=== PATIENT | male | born 1980 | race Caucasian/White ===

== ENCOUNTER 2017-07-03 14:45 | Inpatient (IN) | payer SELFPAY ==
[~2017-07-03] VITALS: Ht 182.9 cm; Wt 90.7 kg
[2017-07-03] VITALS (10 sets, daily range): BP systolic 107–154; BP diastolic 66–86
--- NOTE | 2017-07-03 14:57 | Emergency Room Report ---
History of Present Illness General Chief Complaint: Overdose Source: EMS Present Illness HPI Patient brought in by paramedics for altered mental status patient was found laying on the ground Patient was given intranasal Narcan in route no obvious response There was no other obvious reports of drugs on the scene Patient is unresponsive and history of present illness is significantly limited No obvious vomiting at the scene No obvious trauma to same Allergies: Coded Allergies: UNABLE TO ASSESS (Unverified , 07/03/17) UNRESPONSIVE, NO FAMILY Patient History Limited by: medical condition Pertinent Family History: unable to obtain Reviewed Nursing Documentation: PMH: Agreed, PSxH: Agreed Nursing Documentation-PMH Past Medical History Deferred: No Family Available Past Medical History: Deferred Review of Systems All Other Systems: limited - Other than the ones mentioned in the history of present illness all others are reviewed however they do stay limited due to the patient's mental status Physical Exam Vital Signs Date Time Temp Pulse Resp B/P (MAP) Pulse Ox O2 Delivery O2 Flow Rate FiO2 07/03/17 14:29 97.9 78 18 133/64 95 Room Air Sp02 EP Interpretation: reviewed, normal General Appearance: mild distress - Patient has labored respirations Head: normocephalic, atraumatic Eyes: bilateral eye other - Pinpoint bilaterally ENT: normal pharynx, TMs + canals normal, uvula midline Neck: supple, no meningismus Respiratory: lungs clear, normal breath sounds, no rhonchi, other - Heavy respirations Cardiovascular #1: normal peripheral pulses, regular rate, rhythm, no edema, no gallop, no JVD, no murmur Gastrointestinal: normal bowel sounds, soft, no mass, no organomegaly, non- distended, no hernia, no pulsatile mass, no rebound Musculoskeletal: other - Patient significantly altered is not following commands nonverbal Neurologic: other - Significantly decreased GCS patient has minimal response to physical stimuli, Skin: warm/dry, palpation normal Lymphatic: normal inspection, no adenopathy Medical Decision Making Diagnostic Impression: Primary Impression: Drug overdose Additional Impressions: Aspiration into airway Hypoxia ER Course Given the patient's history and presentation multiple differentials considered the patient has been found altered there was essentially no response to Narcan there for further differentials of intracranial pathology entertained as well Patient blood work and urine sample reveals multiple drug ingestions Patient slowly becoming more arousable and responsive Patient does have evidence of room air hypoxia Has evidence of coughing and what sounds to be likely aspiration Patient initiated on broad spectrum antibiotic And given the hypoxia requires further inpatient care Labs Test 07/03/17 15:00 White Blood Count 8.7 K/UL (4.8-10.8) Red Blood Count 5.03 M/UL (4.70-6.10) Hemoglobin 15.0 G/DL (14.2-18.0) Hematocrit 45.2 % (42.0-52.0) Mean Corpuscular Volume 90 FL (80-99) Mean Corpuscular Hemoglobin 29.8 PG (27.0-31.0) Mean Corpuscular Hemoglobin Concent 33.2 G/DL (32.0-36.0) Red Cell Distribution Width 12.5 % (11.6-14.8) Platelet Count 239 K/UL (150-450) Mean Platelet Volume 6.6 FL (6.5-10.1) Neutrophils (%) (Auto) % (45.0-75.0) Lymphocytes (%) (Auto) % (20.0-45.0) Monocytes (%) (Auto) % (1.0-10.0) Eosinophils (%) (Auto) % (0.0-3.0) Basophils (%) (Auto) % (0.0-2.0) Differential Total Cells Counted 100 Neutrophils % (Manual) 86 % (45-75) Lymphocytes % (Manual) 7 % (20-45) Monocytes % (Manual) 6 % (1-10) Eosinophils % (Manual) 0 % (0-3) Basophils % (Manual) 0 % (0-2) Band Neutrophils 1 % (0-8) Platelet Estimate Adequate Platelet Morphology Normal Red Blood Cell Morphology Normal Sodium Level 143 MMOL/L (136-145) Potassium Level 4.2 MMOL/L (3.5-5.1) Chloride Level 104 MMOL/L (98-107) Carbon Dioxide Level 20 MMOL/L (21-32) Anion Gap 19 mmol/L (5-15) Blood Urea Nitrogen 20 mg/dL (7-18) Creatinine 1.4 MG/DL (0.55-1.30) Estimat Glomerular Filtration Rate 57.3 mL/min (>60) Glucose Level 92 MG/DL (74-106) Calcium Level 10.1 MG/DL (8.5-10.1) Total Bilirubin 0.7 MG/DL (0.2-1.0) Aspartate Amino Transf (AST/SGOT) 30 U/L (15-37) Alanine Aminotransferase (ALT/SGPT) 56 U/L (12-78) Alkaline Phosphatase 114 U/L (46-116) Total Protein 8.8 G/DL (6.4-8.2) Albumin 4.6 G/DL (3.4-5.0) Globulin 4.2 g/dL Albumin/Globulin Ratio 1.1 (1.0-2.7) Salicylates Level 1.0 ug/mL (2.8-20) Urine Opiates Screen Negative (NEGATIVE) Acetaminophen Level < 2 MCG/ML (10-30) Urine Barbiturates Screen Negative (NEGATIVE) Phencyclidine (PCP) Screen Negative (NEGATIVE) Urine Amphetamines Screen Positive (NEGATIVE) Urine Benzodiazepines Screen Positive (NEGATIVE) Urine Cocaine Screen Negative (NEGATIVE) Urine Marijuana (THC) Screen Positive (NEGATIVE) Serum Alcohol < 3 mg/dL Rhythm Strip Diag. Results EP Interpretation: yes Rate: 88 Rhythm: NSR, no PVC's, no ectopy Chest X-Ray Diagnostic Results Chest X-Ray Diagnostic Results : Chest X-Ray Ordered: Yes # of Views/Limited/Complete: 1 View Indication: Chest Pain EP Interpretation: Yes Interpretation: no consolidation, no effusion, no pneumothorax, no acute cardiopulmonary disease Impression: No acute disease Electronically Signed by: Hesham Fortune DO CT/MRI/US Diagnostic Results CT/MRI/US Diagnostic Results : Impression CT head no acute disease Last Vital Signs Date Time Temp Pulse Resp B/P (MAP) Pulse Ox O2 Delivery O2 Flow Rate FiO2 07/03/17 14:29 97.9 78 18 133/64 95 Room Air Status: improved Disposition: ADMITTED INPATIENT Condition: Serious HESHAM FORTUNE D.O. Jul 03, 2017 14:57
--- NOTE | 2017-07-03 15:22 | Diagnostic Imaging Report ---
Indication: Altered mental status Technique: Continuous helical CT scanning of the head was performed without intravenous contrast material. Axial and coronal 5 mm sections were generated. Radiation dose was minimized using automated exposure control Dose: Total Dose Length Product - DLP 1418.[address] Dose Index - CTDIvol(s) 70.38 mGy. Comparison: Findings: The ventricular system is normal in size and configuration. There is no shift of midline structures. No abnormal extra-axial fluid collections are noted. There is no evidence of intracerebral bleeding. No other abnormal high or low density areas are noted within the brain. There is minimal right ethmoid sinus disease. The mastoids are clear. The orbits are unremarkable Impression: Normal CT scan of the head without contrast material. Minimal sinus disease incidentally noted The CT scanner at [facility] is accredited by the [employer] and the scans are performed using protocols designed to limit radiation exposure to as low as reasonably achievable to attain images of sufficient resolution adequate for diagnostic evaluation.
[2017-07-03 15:29] LABS: HEMATOCRIT 45.2 % (42.0-52.0); MEAN CORPUSCULAR VOLUME 90 FL (80-99); PLATELET COUNT 239 K/UL (150-450); RED BLOOD COUNT 5.03 M/UL (4.70-6.10); RED CELL DISTRIBUTION WIDTH 12.5 % (11.6-14.8); WHITE BLOOD COUNT 8.7 K/UL (4.8-10.8)
[2017-07-03] MEDS ORDERED: Naloxone 1mg/ml 2ml IVP ONE (15:45)
[2017-07-03 15:51] LABS: ANION GAP 19 mmol/L (5-15); BLOOD UREA NITROGEN 20 mg/dL (7-18); CALCIUM 10.1 MG/DL (8.5-10.1); CARBON DIOXIDE 20 MMOL/L (21-32); CHLORIDE 104 MMOL/L (98-107); CREATININE 1.4 MG/DL (0.55-1.30); POTASSIUM 4.2 MMOL/L (3.5-5.1); SODIUM 143 MMOL/L (136-145)
[2017-07-03 15:57] LABS: ALANINE AMINOTRANSFERASE 56 U/L (12-78); ALBUMIN 4.6 G/DL (3.4-5.0); ALBUMIN/GLOBULIN RATIO 1.1 (1.0-2.7); ALKALINE PHOSPHATASE 114 U/L (46-116); ASPARTATE AMINO TRANSFERASE 30 U/L (15-37); BILIRUBIN,TOTAL 0.7 MG/DL (0.2-1.0)
--- NOTE | 2017-07-03 16:18 | Diagnostic Imaging Report ---
Indication: Shortness of breath Technique: One view of the chest Comparison: none Findings: Lungs and pleural spaces are clear. The heart size is normal Impression: Negative
[2017-07-03] MEDS ORDERED: cefTRIAXone 1 GM in NS 55 ML IVPB ONE (17:45)
[2017-07-03] MEDS ORDERED: Miralax 17gm pkt ORAL PRN (21:45)
[2017-07-03] MEDS ORDERED: Albuterol/Ipratropium 3ml neb HHN PRN (21:45)
[2017-07-03] MEDS ORDERED: Mylanta II UD 30ml ORAL PRN (21:45)
[2017-07-03] MEDS ORDERED: Promethazine/Codeine 5ml UD ORAL PRN (21:45)
[2017-07-03] MEDS ORDERED: Nitroglycerin Subl 0.4mg tab SL PRN (21:45)
[2017-07-04] MEDS ORDERED: Vancomycin 1.5 GM/D5W 250ML IVPB SCH (02:00)
[2017-07-04] MEDS ORDERED: Tubing IV Secondary IV ONE (04:24)
[2017-07-04] MEDS ORDERED: Cefepime HCl 1 GM in D5W 55 ML IV SCH (09:00)
[2017-07-04] MEDS ORDERED: Heparin 5000 units/ml inj SUBQ SCH (09:00)
--- NOTE | 2017-07-05 14:32 | History & Physical ---
History and Physical History & Physicial Patient left AMA before being seen by the attending Lila Yost NP Jul 05, 2017 14:32
--- NOTE | 2017-07-05 14:32 | Discharge Summary ---
Discharge Summary Hospital Course Date of Admission Jul 03, 2017 at 21:07 Date of Discharge Jul 04, 2017 at 04:25 Admitting Diagnosis hypoxia, aspiration pneumonia HPI Onel Walker is a 37 year old male who was admitted on Jul 03, 2017 at 21: 07 for Hypoxia, Aspiration Pneumonia Hospital Course [id number] Discharge Discharge Disposition Patient left AMA Discharge Diagnoses: Lila Whitman NP Jul 05, 2017 14:32
--- NOTE | 2017-07-06 05:00 | Discharge Summary 2 SIG ---
DATE OF ADMISSION: 07/03/2017 DATE OF DISCHARGE: 07/04/2017 BRIEF HOSPITAL COURSE: The patient is a 37-year-old male, who was brought in by paramedics for altered mental status. The patient was found laying on the ground. He was given intranasal Narcan. There was no obvious response. The patient was unresponsive and history was limited. He was then taken to ED, where he eventually became more arousable and responsive. Blood work did not show any leukocytosis. He was hypoxemic on room air. Chest x-ray done showed no acute cardiopulmonary disease and head CT was normal. He was admitted to Telemetry, however had been anxious and combative. He left against medical advice. Urine toxicology screen was positive for amphetamine, benzodiazepine, and marijuana. FINAL DIAGNOSES: 1. Possible drug overdose. 2. Aspiration into airway. 3. Hypoxia. DISPOSITION: The patient left against medical advice. Toney Ackerman D.O. I have been assigned to dictate discharge summary on this account and I was not involved in the patient's management. Lila Whitman N.P. DR: WADE JOB#: [id number] CC:
== END 2017-07-04 04:25 | disposition left against medical advice (07) | DRG 918 ==
LOC: EDBD 14:45 → EMR 15:08 → 2E 21:07 → EDBEDREQ 22:31 → 2E 07-04 02:29
DX: T50.901A Poisoning by unspecified drugs, medicaments and biological substances, accidental (unintentional), initial encounter (principal); R41.82 Altered mental status, unspecified; R09.02 Hypoxemia; Z53.21 Procedure and treatment not carried out due to patient leaving prior to being seen by health care provider; Y92.9 Unspecified place or not applicable
CPT/HCPCS: 36415; 70450; 71045; 80053; 80307; 80329; 82962; 85007; 85025; 99285; J2310